=== PATIENT | male | born 1970 | race Caucasian/White ===

== ENCOUNTER 2017-08-02 19:47 | Inpatient (IN) | payer OTHER ==
[2017-08-02 20:13] VITALS: BMI 25.8
--- NOTE | 2017-08-02 23:17 | HP ---
CIWA Score - CIWA Score Nausea/Vomitin-Cont. Nausea/Vomiting Muscle Tremors: 7-Severe,w/o Arm Extended Anxiety: 4-Mod. Anxious/Guarded Agitation: 5 Paroxysmal Sweats: 3 Orientation: 1-Uncertain about Date Tacttile Disturbances: 3-Moderate Itch/Numb/Burn Auditory Disturbances: 0-None Visual Disturbances: 0-None Headache: 3-Moderate CIWA-Ar Total Score: 33 Admission ROS BHS - HPI Chief Complaint: C/O WITHDRAWAL SX'S SEEKING DETOX TXMENT. Allergies/Adverse Reactions: Allergies Allergy/AdvReac Type Severity Reaction Status Date / Time No Known Allergies Allergy Verified 08/02/17 23:02 History of Present Illness: 46 Y.O. MALE WITH LONG HX/O ALCOHOL DEPENDENCE HERE FOR DETOX TXMENT. CLIENT WAS REFERRED BY [facility] FOR DETOX AFTER PRESENTING THERE FOR TXMENT. DENIES ANY SIGNIFICANT PERIOD OF CLEAN TIME Exam Limitations: No Limitations - Ebola screening Have you traveled outside of the country in the last 21 days: No Have you had contact with anyone from an Ebola affected area: No Have you been sick,other than usual withdrawal symptoms: No Do you have a fever: No - Review of Systems Constitutional: Chills, Loss of Appetite, Night Sweats, Other (INTOXICATED) EENT: reports: Dental Problems (MISSING TEETH) Respiratory: reports: No Symptoms reported Cardiac: reports: No Symptoms Reported GI: reports: Nausea, Poor Appetite, Poor Fluid Intake, Abdominal cramping : reports: No Symptoms Reported Musculoskeletal: reports: No Symptoms Reported Integumentary: reports: No Symptoms Reported Neuro: reports: Seizure (ALCOHOL RELATED), Tremors (ETOH WITHDRAWAL) Endocrine: reports: No Symptoms Reported Hematology: reports: No Symptoms Reported Psychiatric: reports: Anxious, Depressed Other Systems: Reviewed and Negative Patient History - Patient Medical History Hx Anemia: No Hx Asthma: No Hx Chronic Obstructive Pulmonary Disease (COPD): No Hx Cancer: No Hx Cardiac Disorders: No Hx Congestive Heart Failure: No Hx Hypertension: Yes (CLONIDINE) Hx Hypercholesterolemia: No Hx Pacemaker: No HX Cerebrovascular Accident: No Hx Seizures: Yes (ETOH RELATED LAST ONE 15 YEARS AGO) Hx Dementia: No Hx Diabetes: No Hx Gastrointestinal Disorders: Yes (HX/O PANCREATITIS) Hx Liver Disease: No Hx Genitourinary Disorders: No Hx Sexually Transmitted Disorders: No Hx Renal Disease (ESRD): No Hx Thyroid Disease: No Hx Hepatitis C: No Hx Depression: Yes (NO MEDS) Hx Suicide Attempt: No Hx Bipolar Disorder: No Hx Schizophrenia: No Other Medical History: ANXIETY - Patient Surgical History Hx Appendectomy: Yes Hx Orthopedic Surgery: Yes (3 BACK SX) Anesthesia Reaction: No - PPD History Previous Implant?: Yes Documented Results: Negative w/o proof Implanted On Prior [facility] Admission?: No PPD to be Administered?: Yes - Smoking Cessation Smoking history: Never smoked Initiated information on smoking cessation: No - Substance & Tx. History Hx Alcohol Use: Yes Hx Substance Use: Yes Substance Use Type: Alcohol Hx Substance Use Treatment: Yes ([facility]) - Substances Abused Alcohol Route: Oral Frequency: Daily Amount used: Beer - ( 5) 16 oz Age of first use: 46 Date of Last Use: 08/02/17 Family Disease History - Family Disease History Family History: Denies Admission Physical Exam BHS - Vital Signs Vital Signs: Vital Signs - 24 hr 08/02/17 20:10 Temperature 97.4 F L Pulse Rate 100 H Respiratory 18 Rate Blood Pressure 143/101 - Physical General Appearance: Yes: Appropriately Dressed, Moderate Distress, Alcohol on Breath, Intoxicated, Tremorous, Irritable, Anxious HEENTM: Yes: EOMI, Normocephalic, Normal Voice, [place], Pharynx Normal, Nasal Congestion, Other (MISSING TEETH) Respiratory: Yes: Chest Non-Tender, Lungs Clear, Normal Breath Sounds, No Respiratory Distress, No Accessory Muscle Use Neck: Yes: No masses,lesions,Nodules, Supple, Trachea in good position Breast: Yes: Breast Exam Deferred Cardiology: Yes: Regular Rhythm, Regular Rate, S1, S2 Abdominal: Yes: Normal Bowel Sounds, Non Tender, Soft Genitourinary: Yes: Within Normal Limits Back: Yes: Surgical Scar Musculoskeletal: Yes: full range of Motion, Gait Steady Extremities: Yes: Normal Capillary Refill, Normal Range of Motion, Non-Tender, Tremors Neurological: Yes: Alert, Motor Strength 5/5 Integumentary: Yes: Normal Color, Warm, Other (FLUSHED FACE) Lymphatic: Yes: Within Normal Limits - Diagnostic (1) Alcohol dependence with uncomplicated withdrawal Current Visit: Yes Status: Chronic (2) HTN (hypertension) Current Visit: Yes Status: Chronic Qualifiers: Hypertension type: essential hypertension Qualified Code(s): I10 - Essential (primary) hypertension (3) Alcohol related seizure Current Visit: Yes Status: Chronic Cleared for Admission [facility] - Detox or Rehab [facility] Level of Care: Medically Managed Detox Regimen/Protocol: Librium [facility] Breath Alcohol Content Breath Alcohol Content: 0.223 Urine Drug Screen - Results Drug Screen Negative: No Urine Drug Screen Results: BZO-Benzodiazepines
[2017-08-02] MEDS ORDERED: hydrOXYzine PAMOATE 50 MG CAPSULE (FP) PO PRN (23:42)
[2017-08-02] MEDS ORDERED: IBUPROFEN 400 MG TABLET (FP) PO PRN (23:42)
[2017-08-02] MEDS ORDERED: MENTHOL/PHENOL 1 EACH UD MM PRN (23:42)
[2017-08-02] MEDS ORDERED: LOPERAMIDE HCL 2 MG CAPSULE PO PRN (23:42)
[2017-08-02] MEDS ORDERED: ACETAMINOPHEN 325 MG TABLET (FP) PO PRN (23:42)
[2017-08-02] MEDS ORDERED: P-EPHED 60MG/TRIPROLIDI 2.5MG TABLET PO PRN (23:42)
[2017-08-02] MEDS ORDERED: guaiFENesin/D-METHORPHAN HB 10 ML UNIT-DOSE CUPS PO PRN (23:42)
[2017-08-02] MEDS ORDERED: MAGNESIUM CITRATE 300 ML BOTTLE PO PRN (23:42)
[2017-08-02] MEDS ORDERED: MAGNESIUM HYDROX 2400MG/30ML ORAL SUSPENSION 30 ML CUP PO PRN (23:42)
[2017-08-03] MEDS: chlordiazePOXIDE HCL 25 MG CAPSULE PO PRN ×3 (00:24→18:58)
[2017-08-03] MEDS: chlordiazePOXIDE HCL 25 MG CAPSULE PO SCH ×5 (00:30→22:06)
[2017-08-03] MEDS: cloNIDine HCL 0.1 MG TABLET PO SCH ×3 (05:57→22:06)
[2017-08-03] MEDS: PRENATAL VITAMINS W/ FOLIC ACID TABLET (FP) PO SCH (10:05)
[2017-08-03] MEDS: amLODIPine BESYLATE 10 MG TABLET (FP) PO SCH (10:06)
[2017-08-03 10:07] LABS: MCH 32.6 pg (25.7-33.7); MCHC 34.2 g/dl (32.0-35.9); MEAN CELL VOLUME 95.2 fl (80-96); MEAN PLT VOLUME 6.7 fl (7.5-11.1); PLATELET COUNT 238 K/MM3 (134-434); RDW 15.9 % (11.9-15.9); WHITE BLOOD COUNT 5.2 K/mm3 (4.0-10.0)
[2017-08-03] MEDS ORDERED: SUCRALFATE 1 GM/10 ML UNIT DOSE CUPS PO ONE (10:15)
[2017-08-03] MEDS ORDERED: FUROSEMIDE 40 MG TABLET (FP) PO ONE (10:18)
[2017-08-03] MEDS: RANITIDINE HCL 150 MG TABLET (FP) PO SCH ×2 (10:35→22:06)
--- NOTE | 2017-08-03 10:45 | PN ---
S CIWA - CIWA Score Nausea/Vomitin Muscle Tremors: 5 Anxiety: 5 Agitation: 5 Paroxysmal Sweats: 4-Forehead w/Sweat Beads Orientation: 2-Disoriented Date<2 days Tacttile Disturbances: 2-Mild Itch/Numbness/Burn Auditory Disturbances: 0-None Visual Disturbances: 0-None Headache: 1-Very Mild CIWA-Ar Total Score: 26 BHS Progress Note (SOAP) Subjective: sweating nausea and vomiting anxiety restlessness Objective: 08/03/17 10:42 Vital Signs Temperature 97.7 F 08/03/17 09:07 Pulse Rate 73 08/03/17 09:07 Respiratory Rate 16 08/03/17 09:07 Blood Pressure 162/111 08/03/17 09:07 O2 Sat by Pulse Oximetry (%) Laboratory Last Values WBC 5.2 K/mm3 (4.0-10.0) 08/03/17 07:00 RBC 3.59 M/mm3 (4.00-5.60) L 08/03/17 07:00 Hgb 11.7 GM/dL (11.7-16.9) 08/03/17 07:00 Hct 34.2 % (35.4-49) L 08/03/17 07:00 MCV 95.2 fl (80-96) 08/03/17 07:00 MCH 32.6 pg (25.7-33.7) 08/03/17 07:00 MCHC 34.2 g/dl (32.0-35.9) 08/03/17 07:00 RDW 15.9 % (11.9-15.9) 08/03/17 07:00 Plt Count 238 K/MM3 (134-434) 08/03/17 07:00 MPV 6.7 fl (7.5-11.1) L 08/03/17 07:00 Sodium 141 mmol/L (136-145) 08/03/17 07:00 Potassium 3.3 mmol/L (3.5-5.1) L 08/03/17 07:00 Chloride 105 mmol/L (98-107) 08/03/17 07:00 lab noted Assessment: 08/03/17 10:43 withdrawal sx history of hypertension 172/117 laxis 40 mg x 1 amlodipine 10 mg x 1 d/c ibuprofen Plan: continue detox
[2017-08-03 10:52] LABS: ALBUMIN 2.9 g/dl (3.4-5.0); ALK PHOS 87 U/L (45-117); ANION GAP 14 (8-16); BILIRUBIN,TOTAL 0.4 mg/dL (0.2-1.0); CALCIUM 7.7 mg/dL (8.5-10.1); CO2 22 mmol/L (21-32); CREATININE 0.7 mg/dL (0.7-1.3); GLUCOSE,RANDOM 109 mg/dL (74-106); SGOT/AST 62 U/L (15-37); SGPT/ALT 54 U/L (12-78); TOT PROT 6.1 g/dl (6.4-8.2)
[2017-08-03] MEDS ORDERED: PNEUMOCOCCAL 23 VACCINE 0.5 ML VIAL IM ONE (12:00)
[2017-08-03] MEDS ORDERED: PNEUMOC 13-VAL CONJ-DIP CRM/PF 0.5 ML DISP.SYRIN IM ONE (12:00)
[2017-08-03] MEDS: POTASSIUM CHLORIDE ORAL LIQUID 20 MEQ/15 ML PO SCH ×2 (12:03→22:06)
--- NOTE | 2017-08-03 12:14 | CONSULT ---
[facility] Psychiatric Consult - Data Date of interview: 08/03/17 Admission source: [facility] Identifying data: First admission to [facility] for this 46 y/o male,a referral form [facility],seeking detox treatment on for alcohol dependence.Patient is ,a father of four,domiciled,unemployed and supported on SSD benefits. Substance Abuse History: Patient admits to the consumption of two pints of vodka daily since last year (drug overdose as per self-report) in addition to a variable amount of beer (3-5 X 16 oz of beer). Smoking history : Never smoked. Initiated information on smoking cessation: No. - Substance & Tx. History. Hx Alcohol Use: Yes. Hx Substance Use: Yes. Substance Use Type: Alcohol. Hx Substance Use Treatment: Yes ([facility]). - Substances Abused. Alcohol. Route: Oral. Frequency: Daily. Amount used: Beer - ( 5) 16 oz. Age of first use: 46. Date of Last Use: 08/02/17 Medical History: History of pancreatitis,seizures (withdrawal-related), hypertension,multiple back surgeries and an antecedent of appendectomy. Psychiatric History: Patient admits to one psychiatric hospitalization,15 years ago,in [facility].Diagnosed with MDD.Not on psychotropic medications.Mr Child indicates that he used to be on seroquel 200 mg/hs (unconfirmed).No recent history of OPD care.It appears that the patient relies on his primary care physician for medications refills.Denies history of suicide attempts. Physical/Sexual Abuse/Trauma History: No reported history of abuse.Traumatized by of . Additional Comment: Urine Drug Screen Results: BZO-Benzodiazepines.Noted. Mental Status Exam - Mental Status Exam Alert and Oriented to: Time, Place, Person Cognitive Function: Good Patient Appearance: Well Groomed Mood: Nervous, Withdrawn, Hopeful Affect: Mood Congruent Patient Behavior: Appropriate, Cooperative Speech Pattern: Clear, Appropriate Voice Loudness: Normal Thought Process: Intact, Goal Oriented Thought Disorder: Not Present Hallucinations: Denies Suicidal Ideation: Denies Homicidal Ideation: Denies Insight/Judgement: Poor Sleep: Poorly, Difficulty falling asleep (wants seroquel) Appetite: Good Muscle strength/Tone: Normal Gait/Station: Normal Psychiatric Findings - Problem List ([place] 1, 2,3) (1) Alcohol dependence with uncomplicated withdrawal Current Visit: Yes Status: Acute (2) Alcohol-induced mood disorder Current Visit: Yes Status: Suspected (3) Insomnia Current Visit: Yes Status: Acute - Initial Treatment Plan Initial Treatment Plan: Psychoeducation.Sleep hygiene discussed.Detoxification in effect.Seroquel 100 mg po hs.Side effects/benefits discussed with patient.Made aware of potential for metabolic syndrome.oversedation/falls, abnormal involuntary movements and cardiovascular adverse events.Mr Child reports past good response to seroquel and he consents (verbally) to resume that medication in this treatment course.Observation.
[2017-08-03] MEDS: MAG HYDROX/AL HYDROX/SIMETH 30 ML UNIT-DOSE CUP PO PRN ×2 (12:51→20:55)
[2017-08-03] MEDS ORDERED: chlordiazePOXIDE HCL 25 MG CAPSULE PO ONE (13:00)
[2017-08-03 13:22] LABS: URINE APPEARANCE CLEAR; URINE BILIRUBIN NEGATIVE (NEGATIVE); URINE BLOOD NEGATIVE (NEGATIVE); URINE COLOR YELLOW; URINE GLUCOSE (UA) NEGATIVE (NEGATIVE); URINE KETONE NEGATIVE (NEGATIVE); URINE LEUK ESTERASE NEGATIVE (NEGATIVE); URINE NITRITE NEGATIVE (NEGATIVE); URINE PROTEIN NEGATIVE (NEGATIVE); URINE UROBILINOGEN NEGATIVE mg/dL (0.2-1.0)
--- NOTE | 2017-08-03 14:31 | EKG ---
Test Reason : Blood Pressure : / mmHG Vent. Rate : 099 BPM Atrial Rate : 099 BPM P-R Int : 142 ms QRS Dur : 094 ms QT Int : 348 ms P-R-T Axes : 034 015 046 degrees QTc Int : 446 ms NORMAL SINUS RHYTHM NORMAL ECG NO PREVIOUS ECGS AVAILABLE Confirmed by KHLOE VAZQUEZ, FERNANDO ([id number]) on 08/03/2017 2:31:04 PM Referred By: Confirmed By:FERNANDO LEDBETTER MD
[2017-08-03 17:15] LABS: URINE APPEARANCE CLEAR; URINE BILIRUBIN NEGATIVE (NEGATIVE); URINE BLOOD NEGATIVE (NEGATIVE); URINE COLOR LTYELLOW; URINE GLUCOSE (UA) NEGATIVE (NEGATIVE); URINE KETONE NEGATIVE (NEGATIVE); URINE LEUK ESTERASE NEGATIVE (NEGATIVE); URINE NITRITE NEGATIVE (NEGATIVE); URINE PROTEIN NEGATIVE (NEGATIVE); URINE UROBILINOGEN NEGATIVE mg/dL (0.2-1.0)
[2017-08-03 19:36] LABS: URINE LEUK ESTERASE NEGATIVE (NEGATIVE)
[2017-08-03 20:41] LABS: URINE LEUK ESTERASE NEGATIVE (NEGATIVE)
[2017-08-03] MEDS ORDERED: THIAMINE HCL 100 MG TABLET (FP) PO SCH (22:00)
[2017-08-03] MEDS ORDERED: QUEtiapine FUMARATE 100 MG TABLET (FP) PO SCH (22:00)
[2017-08-04] MEDS: chlordiazePOXIDE HCL 25 MG CAPSULE PO SCH ×2 (05:41→10:09)
[2017-08-04] MEDS: cloNIDine HCL 0.1 MG TABLET PO SCH ×2 (06:23→13:33)
[2017-08-04] MEDS: chlordiazePOXIDE HCL 25 MG CAPSULE PO PRN (07:55)
[2017-08-04 09:48] VITALS: BP 131/96; PULSE 100; TEMP 96.5
[2017-08-04] MEDS: PRENATAL VITAMINS W/ FOLIC ACID TABLET (FP) PO SCH (10:09)
[2017-08-04] MEDS: RANITIDINE HCL 150 MG TABLET (FP) PO SCH (10:09)
[2017-08-04] MEDS: POTASSIUM CHLORIDE ORAL LIQUID 20 MEQ/15 ML PO SCH (10:09)
[2017-08-04] MEDS: amLODIPine BESYLATE 10 MG TABLET (FP) PO SCH (10:09)
--- NOTE | 2017-08-04 10:10 | PN ---
[facility] CIWA - CIWA Score Nausea/Vomitin-No Nausea/No Vomiting Muscle Tremors: 4-Moderate,w/Arms Extend Anxiety: 4-Mod. Anxious/Guarded Agitation: 4-Moderately Restless Paroxysmal Sweats: 1-Minimal Palms Moist Orientation: 0-Oriented Tacttile Disturbances: 3-Moderate Itch/Numb/Burn Auditory Disturbances: 0-None Visual Disturbances: 0-None Headache: 0-None Present CIWA-Ar Total Score: 16 S Progress Note (SOAP) Subjective: ANXIETY, SWEATS, TREMORS, IRRITABILITY,INTERMITTENT SLEEP. Objective: 08/04/17 10:10 Vital Signs Temperature 96.5 F L 08/04/17 09:47 Pulse Rate 100 H 08/04/17 09:47 Respiratory Rate 18 08/04/17 09:47 Blood Pressure 131/96 08/04/17 09:47 O2 Sat by Pulse Oximetry (%) Laboratory Last Values WBC 5.2 K/mm3 (4.0-10.0) 08/03/17 07:00 RBC 3.59 M/mm3 (4.00-5.60) L 08/03/17 07:00 Hgb 11.7 GM/dL (11.7-16.9) 08/03/17 07:00 Hct 34.2 % (35.4-49) L 08/03/17 07:00 MCV 95.2 fl (80-96) 08/03/17 07:00 MCH 32.6 pg (25.7-33.7) 08/03/17 07:00 MCHC 34.2 g/dl (32.0-35.9) 08/03/17 07:00 RDW 15.9 % (11.9-15.9) 08/03/17 07:00 Plt Count 238 K/MM3 (134-434) 08/03/17 07:00 MPV 6.7 fl (7.5-11.1) L 08/03/17 07:00 Sodium 141 mmol/L (136-145) 08/03/17 07:00 Potassium 3.3 mmol/L (3.5-5.1) L 08/03/17 07:00 Chloride 105 mmol/L (98-107) 08/03/17 07:00 Carbon Dioxide 22 mmol/L (21-32) 08/03/17 07:00 Anion Gap 14 (8-16) 08/03/17 07:00 BUN 16 mg/dL (7-18) 08/03/17 07:00 Creatinine 0.7 mg/dL (0.7-1.3) 08/03/17 07:00 Creat Clearance w eGFR > 60 (>60) 08/03/17 07:00 Random Glucose 109 mg/dL (74-106) H 08/03/17 07:00 Calcium 7.7 mg/dL (8.5-10.1) L 08/03/17 07:00 Total Bilirubin 0.4 mg/dL (0.2-1.0) 08/03/17 07:00 AST 62 U/L (15-37) H 08/03/17 07:00 ALT 54 U/L (12-78) 08/03/17 07:00 Alkaline Phosphatase 87 U/L (45-117) 08/03/17 07:00 Total Protein 6.1 g/dl (6.4-8.2) L 08/03/17 07:00 Albumin 2.9 g/dl (3.4-5.0) L 08/03/17 07:00 Urine Color L[place] 08/03/17 13:25 Urine Appearance Clear 08/03/17 13:25 Urine pH 6.0 (5.0-8.0) 08/03/17 13:25 Ur Specific [place] 1.011 (1.001-1.035) 08/03/17 13:25 Urine Protein Negative (NEGATIVE) 08/03/17 13:25 Urine Glucose (UA) Negative (NEGATIVE) 08/03/17 13:25 Urine Ketones Negative (NEGATIVE) 08/03/17 13:25 Urine Blood Negative (NEGATIVE) 08/03/17 13:25 Urine Nitrite Negative (NEGATIVE) 08/03/17 13:25 Urine Bilirubin Negative (NEGATIVE) 08/03/17 13:25 Urine Urobilinogen Negative mg/dL (0.2-1.0) 08/03/17 13:25 Ur Leukocyte Esterase Negative (NEGATIVE) 08/03/17 13:25 RPR Titer Nonreactive (NONREACTIVE) 08/03/17 07:00 Hepatitis C Antibody <0.1 s/co ratio (0.0-0.9) 08/02/17 07:00 Assessment: 08/04/17 10:10 WITHDRAWAL SX Plan: CONTINUE DETOX
--- NOTE | 2017-08-04 11:53 | PN ---
Psychiatric Progress Note Vital Signs: Vital Signs Period Temp Pulse Resp BP Sys/Garcia Pulse Ox Last 24 Hr 96.5 F-98.9 F 78-121 16-18 112-151/76-103 Date of Session: 08/04/17 Chief Complaint:: " I want to kill myself.I miss my ." HPI: Day 3 of detoxification treatment for alcohol dependence.Hospital course is remarkable for frequent visits by the patient to the nurse's station ( medication-seeking behavior),continuous somatic complaints (non-specific) and irritability.Mr Child has been restless all morning and he has continued to pressure nursing staff + MD for an increment in his librium dosage.Patient kept on escalating and he openly threatened to slash his throat because he want to join his . ROS: Alert and fully oriented.Despondent.Restless,pacing and overly anxious.Ambulatory. Current Medications: Active Medications Generic Name Dose Route Start Last Admin Trade Name Freq PRN Reason Stop Dose Admin Acetaminophen 650 mg 08/02/17 23:42 08/04/17 10:09 Tylenol - PO 650 mg Q4H PRN Administration FEVER OR PAIN Al Hydroxide/Mg Hydroxide 30 ml 08/02/17 23:42 08/03/17 20:55 Mylanta Oral Suspension - PO 30 ml Q6H PRN Administration DYSPEPSIA Amlodipine Besylate 10 mg 08/03/17 10:15 08/04/17 10:09 Norvasc - PO 10 mg DAILY RADHA Administration Chlordiazepoxide HCl 25 mg 08/03/17 23:00 08/04/17 10:09 Librium - PO 08/04/17 17:01 25 mg [id number] RADHA Administration Chlordiazepoxide HCl 15 mg 08/04/17 23:00 Librium - PO 08/05/17 17:01 [id number] RADHA Chlordiazepoxide HCl 25 mg 08/02/17 23:42 08/04/17 07:55 Librium - PO 08/05/17 23:41 25 mg Q4H PRN Administration WITHDRAWAL(CONT SUBST) Chlordiazepoxide HCl 10 mg 08/05/17 23:00 Librium - PO 08/06/17 17:01 [id number] RADHA Chlordiazepoxide HCl 50 mg 08/04/17 14:30 Librium - PO 08/04/17 14:31 ONCE ONE Clonidine 0.1 mg 08/03/17 06:00 08/04/17 06:23 Catapres - PO 0.1 mg TID RADHA Administration Eucalyptus/Menthol/Phenol/Sorbitol 1 each 08/02/17 23:42 Cepastat Lozenge - MM Q4H PRN SORE THROAT Guaifenesin 10 ml 08/02/17 23:42 Robitussin Dm - PO Q6H PRN COUGH Hydroxyzine Pamoate 50 mg 08/02/17 23:42 08/03/17 00:24 Vistaril - PO 50 mg Q4H PRN Administration AGITATION Loperamide HCl 4 mg 08/02/17 23:42 Imodium - PO Q6H PRN DIARRHEA Magnesium Citrate 300 ml 08/02/17 23:42 Citroma - PO Q48H PRN CONSTIPATION Magnesium Hydroxide 30 ml 08/02/17 23:42 Milk Of Magnesia - PO DAILY PRN CONSTIPATION Potassium Chloride 20 meq 08/03/17 10:45 08/04/17 10:09 Potassium Chloride Oral Liquid PO 08/05/17 10:44 20 meq BID RADHA Administration Multivit/Folic Acid/Iron 1 tab 08/03/17 10:00 08/04/17 10:09 Vitamins ([facility]) - PO 1 tab DAILY RADHA Administration Pseudoephedrine/Triprolidine 1 combo 08/02/17 23:42 Actifed - PO TID PRN NASAL CONGESTION Quetiapine Fumarate 200 mg 08/04/17 22:00 Seroquel - PO HS RADHA Ranitidine HCl 150 mg 08/03/17 10:15 08/04/17 10:09 Zantac - PO 150 mg BID RADHA Administration Thiamine HCl 100 mg 08/03/17 22:00 08/03/17 22:06 Vitamin B1 - PO 100 mg HS RADHA Administration Medication(s) Change(s): Seroquel 50 mg po daily + 200 mg po hs.Plan was discussed in morning session with the patient.Side effects/benefits were reviewed and the patient has expressed his agreement to the careplan. Current Side Effect: No Lab tests ordered: No Lab tests reviewed: Yes Provider note:: Met with patient.He is tearful,depressed,overwhelmingly anxious and " determined to end it all." Mr Child reports feeling lonely,worthless and hopeless.He insists that he has no incentive to continue living.Patient states that staying on a detox unit is " not the answer to my problems " and he is eager to get admission to a psychiatric institution.He is showing more impatience (wants to leave immediately).This is a situation of emergency at this point.Patient is placed on Constant Observation until the arrival of EMS personnel.Mr Child will be transferred to the psychiatric emergency department at [facility] for safety.Discussed with the Multidisciplinary Treatment team. Total face to face time:: 70 Mental Status Exam - Mental Status Exam Alert and Oriented to: Time, Place, Person Cognitive Function: Grossly Intact Patient Appearance: Disheveled Mood: Depressed, Fearful, Nervous, Anxious Affect: Constricted Patient Behavior: Restless Speech Pattern: Clear Voice Loudness: Normal Thought Process: Goal Oriented Hallucinations: Denies Suicidal Ideation: Current (wants to join his ), Plan (plans to go somewhere and slash his throat) Homicidal Ideation: Denies Insight/Judgement: Poor, Impaired Sleep: Poorly Appetite: Fair Muscle strength/Tone: Normal Gait/Station: Normal Psychiatric Treatment Plan - Problem List (1) Suicide risk Current Visit: Yes (2) Depressive disorder Current Visit: Yes (3) Alcohol dependence with uncomplicated withdrawal Current Visit: Yes (4) Alcohol-induced mood disorder Current Visit: Yes (5) Insomnia Current Visit: Yes
[2017-08-04] MEDS ORDERED: chlordiazePOXIDE HCL 25 MG CAPSULE PO ONE (14:30)
[2017-08-04] MEDS ORDERED: QUEtiapine FUMARATE 200 MG TABLET PO SCH (22:00)
[2017-08-04] MEDS ORDERED: chlordiazePOXIDE 5 MG CAPSULE PO SCH (23:00)
[2017-08-05] MEDS ORDERED: chlordiazePOXIDE HCL 10 MG CAPSULE PO SCH (23:00)
== END 2017-08-04 14:35 | disposition short-term general hospital (02) | DRG 897 ==
LOC: YASAS 19:47 → Y3N 23:08
PROVIDERS: ADMIT Internal Medicine; ATTEND Internal Medicine
PROC: HZ2ZZZZ Detoxification Services for Substance Abuse Treatment (ICD-10-PCS; principal; 2017-08-02)
DX: F10.230 Alcohol dependence with withdrawal, uncomplicated (principal); R45.851 Suicidal ideations; F10.24 Alcohol dependence with alcohol-induced mood disorder; F32.9 Major depressive disorder, single episode, unspecified; F41.8 Other specified anxiety disorders; I10 Essential (primary) hypertension; Z63.4 Disappearance and death of family member; Z86.69 Personal history of other diseases of the nervous system and sense organs
CPT/HCPCS: 36415; 80053; 81003; 85027; 86593; 86803; 93005; 93010